=== PATIENT | male | born 1945 | race Caucasian/White ===

== ENCOUNTER 2017-12-10 18:48 | Outpatient (CLI) | payer MEDICARE, OTHER ==
--- NOTE | 2017-12-11 12:14 | Ultrasound Report ---
CAROTID DUPLEX: 12/10/2017 CLINICAL INDICATION: Carotid bruit, hyperlipidemia. TECHNIQUE: Real-time sonographic vascular imaging was performed by the senior mechanical engineer through the carotid arteries utilizing both color-flow and Doppler spectral analysis. Multiple passenger representative static images were saved for review. Vessel PSV cm/sec EDV cm/sec ICA/CCA PSV Ratio Degree of stenosis Plaque Estimate% RCCA Prox 97.4 --- --- --- --- RCCA Dist 87.6 18.9 --- --- --- RECA 103 --- --- --- --- RT BULB 101.7 30.8 1.2 --- --- NATHEN Prox 166 43.1 1.9 --- --- NATHEN Mid 146.5 41.7 1.7 --- --- NATHEN Dist 108.5 26 1.3 --- --- RVA 111.3 --- --- --- --- RVA flow direction: Antegrade. Vessel PSV cm/sec EDV cm/sec ICA/CCA PSV Ratio Degree of stenosis Plaque Estimate% LCCA Prox 66.7 --- --- --- --- LCCA Dist 84.3 20.7 --- --- --- LECA 99.7 --- --- --- --- LFT BULB 91.2 30.1 1.1 --- --- LICA Prox 93.5 25.5 1.1 --- --- LICA Mid 104.3 36.3 1.2 --- --- LICA Dist 99.7 30.2 1.2 --- --- LVA 69 --- --- --- --- LVA flow direction: Antegrade. Velocity criteria are extrapolated from diameter data as defined by the Society of Radiologists in Ultrasound Consensus Conference Radiology 2003; 229; 340-346. Degree of Stenosis ICA PSV cm/sec ICA/CCA RSV Ratio ICA EDV cm/sec Plaque Estimate % % Normal < 125 < 40 < 2.0 None <50 < 125 <40 < 2.0 < 50 50-69 125-130 40-100 2.0-4.0 >/= 50 >/=70 but less than> 230 > 100 > 4.0 >/= 50 near occlusion Near occlusion High, low or Variable Variable Visible undetectable Total occlusion Undetectable Not applicable Not applicable No detectable lumen FINDINGS RIGHT: Calcified plaquing is seen in the right carotid bifurcation. There is no evidence of a focal hemodynamically significant stenosis by velocity criteria. LEFT: Calcified plaquing is seen in the left carotid bifurcation. There is no evidence of a focal hemodynamically significant carotid stenosis. The vertebral arteries demonstrate antegrade flow bilaterally. IMPRESSION: CALCIFIED PLAQUING, BUT NO EVIDENCE OF A FOCAL HEMODYNAMICALLY SIGNIFICANT ARTERIAL STENOSIS. TD: 12/11/2017 10:02 SAURABH
== END 2017-12-10 18:49 | disposition home or self-care (01) ==
LOC: DI 18:48
PROVIDERS: ATTEND Physician Assistant
DX: R09.89 Other specified symptoms and signs involving the circulatory and respiratory systems (principal); E78.5 Hyperlipidemia, unspecified
CPT/HCPCS: 93880

== ENCOUNTER 2018-04-30 11:41 | Outpatient (CLI) | payer MEDICARE, OTHER ==
--- NOTE | 2018-04-30 16:31 | CT Report ---
Procedure Date: 04/30/2018 Accession Number: [id number] / [id number] Procedure: CT - Sinuses CPT Code: FULL RESULT: EXAM: Sinuses DATE: 04/30/2018 12:02 PM CLINICAL HISTORY: CHRONIC SINUS PRESSURE PAIN COMPARISON: None. TECHNIQUE: Routine multi-axial CT imaging performed through the sinuses. Iodinated IV contrast: None. Reconstructions: Sagittal and coronal In accordance with CT protocol optimization, one or more of the following dose reduction techniques were utilized for this exam: automated exposure control, adjustment of mA and/or KV based on patient size, or use of iterative reconstructive technique. FINDINGS: RIGHT Frontal: Normal. Ethmoid: Normal. Maxillary: Normal. Sphenoid: Normal. Drainage Pathways: The frontal recess, ostiomeatal complex and sphenoethmoidal recess are patent and normal. LEFT Frontal: Normal. Ethmoid: Normal. Maxillary: Normal. Sphenoid: Normal. Drainage Pathways: The frontal recess, ostiomeatal complex and sphenoethmoidal recess are patent and normal. Nasal Cavity: Normal. No mass or significant anatomic abnormality evident. Osseous Structures: Normal. Orbits: Unremarkable. Other: None. IMPRESSION: Normal Sinus CT. No sinusitis. RADIA
== END 2018-04-30 11:42 | disposition home or self-care (01) ==
LOC: DI 11:41
PROVIDERS: ATTEND Physician Assistant
DX: R51 Headache (principal)
CPT/HCPCS: 70486

== ENCOUNTER 2021-04-14 08:00 | Outpatient (CLI) | payer MEDICARE, OTHER ==
--- NOTE | 2021-04-14 19:27 | XRAY Report ---
PROCEDURE: Wrist 3 View RT INDICATIONS: LACERATION OF RIGHT WRIST W/O FB TECHNIQUE: 3 views of the wrist were acquired. COMPARISON: None FINDINGS: Bones: No fractures or dislocations. No suspicious bony lesions. Scaphoid view: Not obtained Soft tissues: No suspicious soft tissue calcifications. IMPRESSION: No trauma found. No fracture or foreign body seen. Reviewed by: Imer Del Rosario MD on 04/14/2021 7:26 PM PDT Approved by: Imer Del Rosario MD on 04/14/2021 7:26 PM PDT Station ID: [id number]
== END 2021-04-14 23:59 | disposition home or self-care (01) ==
LOC: DI.S 08:00
PROVIDERS: ATTEND Physician Assistant
DX: S61.511A Laceration without foreign body of right wrist, initial encounter (principal)